=== PATIENT | male | born 1985 | race African-American/Black ===

== ENCOUNTER 2017-02-19 19:54 | Emergency (ER) | payer SELFPAY ==
--- NOTE | 2017-02-19 21:20 | RAD ---
PORTABLE AP CHEST X-RAY 02/19/17 HISTORY: Cough with onset two days ago. Shortness of breath and wheezing. COMPARISON: 09/05/16 FINDINGS: The cardiac silhouette and pulmonary vasculature are within normal limits. The lungs remain clear. T here has been no interval change compared to prior study. IMPRESSION: No acute cardiopulmonary process. POS: [facility]
== END 2017-02-19 20:47 | disposition home or self-care (01) ==
LOC: ERS 19:54
DX: J40 Bronchitis, not specified as acute or chronic (principal); F17.200 Nicotine dependence, unspecified, uncomplicated
CPT/HCPCS: 71010; 93005

== ENCOUNTER 2017-03-21 21:48 | Emergency (ER) | payer SELFPAY ==
--- NOTE | 2017-03-21 23:12 | RAD ---
TWO VIEWS CHEST 03/21/17 HISTORY: Cough. PA and lateral views of the chest is obtained. The lungs are well aerated. No evidence of active int rathoracic disease seen. No evidence of effusions, pneumonia, or pneumothorax seen. IMPRESSION: Normal two views chest. POS: [facility]
== END 2017-03-22 00:31 | disposition home or self-care (01) ==
LOC: ERS 21:48
DX: J20.9 Acute bronchitis, unspecified (principal); J45.909 Unspecified asthma, uncomplicated; F17.210 Nicotine dependence, cigarettes, uncomplicated
CPT/HCPCS: 71020; 94640; J7620

== ENCOUNTER 2017-06-21 23:30 | Emergency (ER) | payer SELFPAY ==
--- NOTE | 2017-06-22 07:37 | RAD ---
CHEST 2 VIEWS: Date: 06/22/17 HISTORY: Dyspnea. COMPARISON: Chest 2 views dated 03/21/17. FINDINGS: Lungs are clear. No pneumothorax or effusion. Cardiac silhouette and mediastinal contours are within normal limits. No acute osseous abnormality. IMPRESSION: No acute intrathoracic abnormality. POS: [facility]
== END 2017-06-22 02:31 | disposition home or self-care (01) ==
LOC: ERS 23:30
DX: J45.901 Unspecified asthma with (acute) exacerbation (principal); F17.210 Nicotine dependence, cigarettes, uncomplicated
CPT/HCPCS: 71046; 94640; J7620

== ENCOUNTER 2019-08-24 20:59 | Emergency (ER) | payer SELFPAY ==
[2019-08-24] MEDS ORDERED: predniSONE 20 MG TAB ONE (22:46)
== END 2019-08-24 23:30 | disposition home or self-care (01) ==
LOC: ERS 20:59
DX: J45.901 Unspecified asthma with (acute) exacerbation (principal); F17.210 Nicotine dependence, cigarettes, uncomplicated; Z79.899 Other long term (current) drug therapy
CPT/HCPCS: 94640; J7512; J7620